=== PATIENT | male | born 1985 ===

== ENCOUNTER 2017-02-01 09:53 | Emergency (ER) | payer OTHER ==
[2017-02-01 09:58] VITALS: BMI 24.3
[2017-02-01 10:00] VITALS: BP 114/79; PULSE 105; RESP 20; TEMP 98.8; O2SAT 100
[2017-02-01] MEDS ORDERED: Lidocaine 2% Inj (20ml) SC STA (10:34)
[2017-02-01] MEDS ORDERED: Lidocaine 2% Inj (20ml) ONE (10:38)
--- NOTE | 2017-02-01 11:00 | C.PDOC ---
History Of Present Illness 31 y/o M c no PMHx p/w painful, draining swelling to L sided chin x 1 week. Patient states that he has had a cyst in this location for multiple years but in the last week, it has become large, painful, red, and with weeping pus. He denies fever. He is already on clindamycin. He comes with a CT neck report from 1 month ago which describes a cyst superficial to platysma in this location. Time Seen by Provider: 02/01/17 09:58 Chief Complaint (Nursing): Abnormal Skin Integrity Past Medical History Vital Signs: Last Vital Signs Temp 98.8 F 02/01/17 09:59 Pulse 105 H 02/01/17 09:59 Resp 20 02/01/17 09:59 BP 114/79 02/01/17 09:59 Pulse Ox 100 02/01/17 11:02 Family History: States: No Known Family Hx - Social History Hx Tobacco Use: Yes Hx Alcohol Use: Yes Hx Substance Use: Yes - Immunization History Hx Influenza Vaccination: No Review Of Systems Except As Marked, All Systems Reviewed And Found Negative. Constitutional: Negative for: Fever Respiratory: Negative for: Shortness of Breath Physical Exam - Physical Exam Additional Physical Exam Comments: General: NAD Skin: Erythematous, fluctuant, golf ball sized abscess to L sided chin, appears very superficial, not overlying carotid artery and not overlying facial nerve trajectory. ED Course And Treatment O2 Sat by Pulse Oximetry: 100 - Incision & Drainage Of Abscess Anesthesia: Lidocaine 2% Prep Used: Betadine Procedure: Incised W/Scalpel Blade#: (10), Drained Pus, Probed To Break Up Loculations, Packed W/Gauze, Cultures Obtained And Sent To Lab Medical Decision Making Medical Decision Making: I discussed the risks of I&D including facial nerve palsy or unintentional injury to vascular structures. Patient understood and agreed to procedure. After procedure, no facial droop, patient much more comfortable. Culture sent. Continue clinda. Return in 48 hours for wound check. Disposition - Disposition Disposition: HOME/ ROUTINE Disposition Time: 11:07 Condition: STABLE Instructions: Abscess Incision and Drainage (ED) Forms: [employer] (Greenlandic) - Clinical Impression Clinical Impression: Abscess
== END 2017-02-01 11:15 | disposition home or self-care (01) ==
LOC: C.ER 09:53
DX: L02.01 Cutaneous abscess of face (principal)

== ENCOUNTER 2017-02-03 10:54 | Emergency (ER) | payer OTHER ==
[2017-02-03 10:54] VITALS: BMI 24.3
[2017-02-03 11:02] VITALS: BP 129/66; PULSE 107; RESP 16; TEMP 98.4; O2SAT 98
[2017-02-03] MEDS ORDERED: Bacitracin 500 Units/gm Oint Foilpak UD TOP STA (11:37)
--- NOTE | 2017-02-03 11:37 | C.PDOC ---
History Of Present Illness 31 y/o male patient arrives to the ED for an evaluation of a wound check on the left jaw area. Patient underwent I&D procedure two days ago . The patient has been compliant with the antibiotics and the effected area has gotten smaller and less painful. The patient is scheduled for a follow up appointment with the surgeon on 02/27/17. The patient denies having headaches, vomiting, rashes, dizziness Time Seen by Provider: 02/03/17 11:21 Chief Complaint (Nursing): Wound Check History Per: Patient History/Exam Limitations: no limitations Onset/Duration Of Symptoms: Days Ago Current Symptoms Are (Timing): Still Present Quality Of Symptoms: denies: Painful Past Medical History Reviewed: Historical Data, Nursing Documentation, Vital Signs Vital Signs: Last Vital Signs Temp 98.4 F 02/03/17 11:00 Pulse 107 H 02/03/17 11:00 Resp 16 02/03/17 11:00 BP 129/66 02/03/17 11:00 Pulse Ox 98 02/03/17 16:23 Surgical History: No Surg Hx Family History: States: Unknown Family Hx - Social History Hx Tobacco Use: Yes Hx Alcohol Use: No Hx Substance Use: No - Immunization History Hx Influenza Vaccination: No Review Of Systems Except As Marked, All Systems Reviewed And Found Negative. Constitutional: Negative for: Fever, Chills Respiratory: Negative for: Cough, Shortness of Breath Gastrointestinal: Negative for: Vomiting Skin: Negative for: Rash Physical Exam - Physical Exam Appears: Non-toxic, No Acute Distress Skin: Normal Color, Warm, Dry Head: Normacephalic, Tenderness (area is tender to palpation), Other (2cm area of induration to left jawline with open pustule , no fluctuance, and area has packing in place.) Eye(s): bilateral: Normal Inspection Oral Mucosa: Moist Neck: Supple Chest: Symmetrical Cardiovascular: Rhythm Regular Respiratory: Normal Breath Sounds, No Rales, No Rhonchi Extremity: Normal ROM, Capillary Refill (<2sec.) Neurological/Psych: Oriented x3, Normal Speech, Normal Cognition Gait: Steady ED Course And Treatment O2 Sat by Pulse Oximetry: 98 (RA) Progress Note: The patient had packing in placed and the packing was removed. Bacitracin was applied to the area and then it was repacked with gauze. On reassessment, patient is resting comfortably, and is in no acute distress. Patient was instructed to have a follow up with his surgeon as scheduled. Disposition Counseled Patient/Family Regarding: Diagnosis, Need For Followup, Rx Given - Disposition Referrals: [facility] [Outside] Disposition: HOME/ ROUTINE Disposition Time: 11:45 Condition: STABLE Additional Instructions: CONTINUE YOUR ANTIBIOTICS USE PAIN MEDICATION NEEDED RETURN TO ER IF SYMPTOMS WORSEN FOLLOW UP WITH SPECIALIST SCHEDULED Prescriptions: oxyCODONE/Acetaminophen [Percocet 5/325 mg Tab] 1 tab PO QID PRN #12 tab PRN Reason: Pain Instructions: Abscess (ED) Forms: [employer] (Bulgarian) Print Language: BELARUSIAN - POA Present On Arrival: None - Clinical Impression Clinical Impression: Abscess - Scribe Statement The provider has reviewed the documentation as recorded by the Scribe (Shannan Alva) Provider Attestation: All medical record entries made by the Scribe were at my direction and personally dictated by me. I have reviewed the chart and agree that the record accurately reflects my personal performance of the history, physical exam, medical decision making, and the department course for this patient. I have also personally directed, reviewed, and agree with the discharge instructions and disposition.
[2017-02-03] MEDS ORDERED: Bacitracin 500 Units/gm Oint Foilpak UD ONE (11:55)
== END 2017-02-03 12:00 | disposition home or self-care (01) ==
LOC: C.ER 10:54
DX: Z48.00 Encounter for change or removal of nonsurgical wound dressing (principal)